=== PATIENT | female | born 1955 | race Caucasian/White ===

== ENCOUNTER 2017-09-28 12:16 | Day surgery (SDC) | payer OTHER ==
[2017-09-28] MEDS ORDERED: PROPOFOL 20 ML ×2 (14:38→15:11)
[2017-09-28] MEDS ORDERED: LIDOCAINE 100 MG SYRINGE (14:39)
[2017-09-28] MEDS ORDERED: LIDOCAINE 1% (MPF) 5 ML VIAL (15:12)
[2017-09-28] MEDS ORDERED: MIDAZOLAM 1 MG/ML 2 ML INJ (15:12)
== END 2017-09-28 19:02 | disposition home or self-care (01) ==
LOC: GIL 12:16
DX: I85.00 Esophageal varices without bleeding (principal); E03.9 Hypothyroidism, unspecified; F17.200 Nicotine dependence, unspecified, uncomplicated
CPT/HCPCS: 43235

== ENCOUNTER 2018-02-13 05:36 | Day surgery (SDC) | payer OTHER ==
[2018-02-13] MEDS ORDERED: SOD CHLORIDE 0.9% 1,000 ML IV (06:30)
[2018-02-13 06:33] LABS: ADD MAN DIFF? NO
[2018-02-13 06:38] LABS: BASOPHIL # 0.1 10^3/ul (0.0-0.1); BASOPHILS % 1.2 % (0.0-2.0); EOSINOPHILS # 0.3 10^3/ul (0.0-0.5); EOSINOPHILS % 3.1 % (0.0-7.0); HEMATOCRIT 47.6 % (37.0-47.0); HEMOGLOBIN 16.5 g/dl (12.0-16.0); IMMATURE GRANS #M 0.03 10^3/ul; IMMATURE GRANS % (M) 0.4 %; LYMPHOCYTES % 36.9 % (15.0-51.0); MEAN CORPUSCULAR HEMOGLOBIN 31.2 pg (29.0-33.0); MEAN CORPUSCULAR HGB CONC 34.7 g/dl (32.0-37.0); MEAN PLATELET VOLUME 9.7 fl (7.4-10.4); MONOCYTE # 0.6 10^3/ul (0.3-0.9); NEUTROPHIL # 4.2 10^3/ul (1.6-7.5); NEUTROPHILS % 51.4 % (39.0-77.0); PLATELET COUNT 191 10^3/UL (140-415); RED BLOOD COUNT 5.29 10^6/ul (4.20-5.40); RED CELL DISTRIBUTION WIDTH 13.2 % (11.5-14.5)
[2018-02-13 06:38] LABS: WHITE BLOOD COUNT 8.2 10^3/ul (4.8-10.8)
[2018-02-13 06:56] LABS: ALANINE AMINOTRANSFERASE 34 IU/L (13-69); ALBUMIN/GLOBULIN RATIO 1.17; ALKALINE PHOSPHATASE 51 IU/L (42-121); ANION GAP 11 (8-16); ASPARTATE AMINO TRANSFERASE 44 IU/L (15-46); BILIRUBIN,INDIRECT 0.1 mg/dl (0-1.1); BILIRUBIN,TOTAL 0.1 mg/dl (0.2-1.3); BLOOD UREA NITROGEN 5 mg/dl (7-20); CALCIUM 9.5 mg/dl (8.4-10.2); CARBON DIOXIDE 27 mmol/L (21-31); CHLORIDE 108 mmol/L (97-110); GLUCOSE 100 mg/dl (70-220); POTASSIUM 4.1 mmol/L (3.5-5.1); SODIUM 142 mmol/L (135-144); TOTAL PROTEIN 7.4 g/dl (6.1-8.1)
[2018-02-13 06:57] LABS: INR 0.92; PROTIME 12.4 Sec (11.9-14.9)
[2018-02-13 06:58] LABS: PARTIAL THROMBOPLASTIN TIME 32.1 Sec (25.0-35.0)
[2018-02-13] MEDS: BUPIVACAINE 0.25%/EPI (MDV) 50 ML VIAL INJ (07:23)
[2018-02-13] MEDS ORDERED: MEPERIDINE 25 MG INJ IV (07:30)
[2018-02-13] MEDS ORDERED: FENTAnyl 50 MCG/ML VIAL IV ×3 (07:30)
[2018-02-13] MEDS ORDERED: ONDANSETRON 4 MG INJ IV (07:30)
[2018-02-13] MEDS ORDERED: hydrALAzine 20 MG INJ IV (07:30)
[2018-02-13] MEDS ORDERED: OXYCODONE/ACETAMINOPHEN (5/325) TAB PO ×2 (07:30)
[2018-02-13] MEDS ORDERED: MIDAZOLAM 1 MG/ML 2 ML INJ IV (07:30)
[2018-02-13] MEDS ORDERED: EPHEDrine SULFATE 50 MG/5 ML SYG IV (07:30)
[2018-02-13] MEDS ORDERED: DIPHENHYDRAMINE 50 MG INJ IV (07:30)
[2018-02-13] MEDS ORDERED: LABETALOL HCL 20MG INJ IV (07:30)
[2018-02-13] MEDS ORDERED: HYDROmorphONE 1 MG/5 ML IV SYRINGE IV ×3 (07:30)
[2018-02-13] MEDS ORDERED: GLYCOPYRROLATE 0.4 MG INJ (07:34)
[2018-02-13] MEDS ORDERED: PROPOFOL 20 ML (07:34)
[2018-02-13] MEDS ORDERED: ROCURONIUM 50 MG INJ (07:34)
[2018-02-13] MEDS ORDERED: LIDOCAINE 2% (SDV) 5 ML INJ (07:34)
[2018-02-13] MEDS ORDERED: NEOSTIGMINE 3 MG/3 ML SYRINGE (07:34)
[2018-02-13] MEDS ORDERED: SUCCINYLCHOLINE CHLORIDE 100 MG/5 ML SYG IV (07:34)
[2018-02-13] MEDS ORDERED: MEPERIDINE 100 MG INJ (07:34)
[2018-02-13] MEDS ORDERED: ONDANSETRON 4 MG INJ (08:07)
[2018-02-13] MEDS ORDERED: HYDROCODONE/APAP (5/325) TAB PO ×2 (09:00)
[2018-02-13] MEDS: METOCLOPRAMIDE 10 MG INJ IV (09:08)
[2018-02-13] MEDS ORDERED: CEFAZOLIN 1 GM/50 ML (PMX) 50 ML IVPB (14:00)
== END 2018-02-13 10:40 | disposition home or self-care (01) ==
LOC: SDS 05:36
DX: K64.8 Other hemorrhoids (principal); K64.4 Residual hemorrhoidal skin tags; F17.210 Nicotine dependence, cigarettes, uncomplicated
CPT/HCPCS: 46260; 71045; 80053; 85025; 85610; 85730; 88304; 93005

== ENCOUNTER 2019-01-09 11:59 | Day surgery (SDC) | payer OTHER ==
[2019-01-09] MEDS ORDERED: PROPOFOL 40 ML (15:44)
[2019-01-09] MEDS ORDERED: LIDOCAINE 100 MG SYRINGE (15:44)
== END 2019-01-09 16:50 | disposition home or self-care (01) ==
LOC: GIL 11:59
DX: Z12.11 Encounter for screening for malignant neoplasm of colon (principal); K64.8 Other hemorrhoids; K20.8 Other esophagitis; E03.9 Hypothyroidism, unspecified
CPT/HCPCS: 43239; 88305